=== PATIENT | female | born 1985 | race Caucasian/White ===

== ENCOUNTER 2016-11-12 03:45 | Inpatient (IN) | payer OTHER ==
[2016-11-12 04:48] VITALS: BMI 30.2
[2016-11-12] MEDS ORDERED: Penicillin G Potassium 5 MU in Sodium Chloride 0.9% 50 ML IVPB ONE (04:50)
--- NOTE | 2016-11-12 04:58 | OBADHP ---
Datetime: 11/12/2016 04:52 Admit Comment, IP Provider: Patient is a @ 40.4 wks with uterine contractions. Patient is GB S positive, otherwise previous no issues and previous history of multiple terminations. No medic al problems, no surgeries, no allergies. Patient denies vaginal bleeding, leaking, +FM VE+6/90/-1 UTT=[id number] mod martha, +accels, no decels TOCO = contraction q 1-2 mins A/P 1. Patient presents in labor, 6cm. Will admit patient, start IVF, draw blood 2. PCN for GBS prophylaxis. 3. Patient would like epidural for pain 4. CEFM and TOCO Pelvic Type - PN: Adequate Extremities - PN: Normal Abdomen - PN: Normal Back - PN: Normal Breast - PN: Normal Lungs - PN: Normal Heart - PN: Normal Thyroid - PN: Normal Neurologic - PN: Normal HEENT - PN: Normal General - PN: Normal Presentation-Admit: Breech FHR - Baseline A Provider: 125 Membranes, Provider: Intact Contraction Comments Provider: q 1-2 Vital Signs Provider: Reviewed; Within Normal Limits IP Chief Complaint: Uterine contractions NICHD Variability Prov Fetus A: Moderate 6-25bpm NICHD Accel Fetus A IP Provider: 15X15 NICHD Decel Fetus A IP Provider: None Dilatation, Provider: 6 Effacement, Provider: 90 Station, Provider: -1 Genitourinary Exam: Normal DTRs - PN: Normal EGA AdmitDate IP: 40.4 IP Adm Impression: Term, intrauterine IP Admit Plan: Admit to unit; Initiate labor protocol
[2016-11-12] MEDS ORDERED: Penicillin G 5 Million Unit Vial IVPB ONE (05:03)
[2016-11-12] MEDS: Lactated Ringer's 1,000 ML IV SCH ×4 (05:11→10:00)
[2016-11-12 05:21] LABS: BASO % 0.3 % (0.0-2.0); EOS # 0.2 K/uL (0.0-0.7); EOS % 1.4 % (0.0-4.0); HEMATOCRIT 36.7 % (34.0-47.0); LYMPH # 1.7 K/uL (1.0-4.3); LYMPH % 13.9 % (20.0-40.0); MEAN CORPUSCULAR HEMOGLOBIN 29.9 pg (27.0-31.0); MEAN CORPUSCULAR HGB CONC 33.2 g/dL (33.0-37.0); MEAN PLATELET VOLUME 8.9 fl (7.2-11.7); MONO # 0.8 K/uL (0.0-0.8); MONO % 6.7 % (0.0-10.0); NEUT # 9.7 K/uL (1.8-7.0); NEUT % 77.7 % (50.0-75.0); RED CELL DISTRIBUTION WIDTH 13.2 % (11.5-14.5); WHITE BLOOD COUNT 12.5 K/uL (4.8-10.8)
[2016-11-12] MEDS ORDERED: Oxytocin 30 units/LR 500ML 30 U/500 ML BAG IV ONE ×2 (05:21→10:07)
[2016-11-12] MEDS ORDERED: Bupivacaine HCl 0.25% PF (10 ml) Inj ONE (05:46)
[2016-11-12] MEDS ORDERED: Fentanyl/Bupivacaine HCl 250 ML EPI ONE (05:46)
[2016-11-12] MEDS ORDERED: Lidocaine 1% Inj (20ml) ONE (07:33)
--- NOTE | 2016-11-12 09:56 | OBPN ---
Datetime: 11/12/2016 09:52 IP Progress Impression: Normal progression of labor IP Procedures: Artificial ROM IP Progress Plan: Continue present management Membranes, Provider: Ruptured Amniotic Fluid Color, Provider: Meconium, Light FHR - Baseline A Provider: 130s IP Progress Note Comment: 31 yo at 40+4 wks in labor Anticipate VD NICHD Accel Fetus A IP Provider: 15X15 NICHD Variability Prov Fetus A: Moderate 6-25bpm Dilatation, Provider: 10 Effacement, Provider: 100 Station, Provider: -1 Datetime: 11/12/2016 04:52 Contraction Comments Provider: q 1-2 Presentation-Admit: Breech Vital Signs Provider: Reviewed; Within Normal Limits NICHD Decel Fetus A IP Provider: None
[2016-11-12] MEDS ORDERED: Benzocaine/Menthol SPRAY TOP PRN (13:37)
[2016-11-12] MEDS ORDERED: Oxycodone/Acetaminophen 5/325 mg Tab PO PRN (13:37)
--- NOTE | 2016-11-12 13:50 | OBDS ---
MATERNAL INFORMATION Provider Comments: Pt progressed ton complete and pushed to deliver a viable female through t hin meconium-stained fluid at 1:22 pm. Apgars 9 and 9. Wt 3260 gms, 7#3. Infant placed on mother's abdomen. Cord clamped and cut. Cord blood collected. Placenta delivered spontaneously intact w/ a 3vc at 1:26 pm. Right periurethral tear was repaired w/ 3-0 vicryl rapide for hemostasis. 1st degr ee tear was closed w/ 3-0 vicryl rapide. Rectum intact. Pt and baby tolerated the procedure well. EB L: 100mL LABOR SUMMARY EDC: 11/08/2016 00:00 No. Babies in Womb: 1 Attempted: No Labor Anesthesia: Epidural LABOR INFORMATION Oxytocin: N/A Group B Beta Strep: Positive Antibiotics Time of Last Dose: 0900 MEMBRANES Membranes Rupture Method: Spontaneous Rupture of Membranes: 11/12/2016 09:50 Amniotic Fluid Color: Light Meconium Amniotic Fluid Amount: Moderate Amniotic Fluid Odor: Normal VAGINAL DELIVERY Laceration Repair Note: Right periurethral tear was repaired w/ 3-0 vicryl rapide for hemostasis. 1 st degree tear was closed w/ 3-0 vicryl rapide. Rectum intact.
[2016-11-13 06:56] LABS: HEMATOCRIT 34.9 % (34.0-47.0); MEAN CELL VOLUME 89.2 fl (81.0-99.0); MEAN CORPUSCULAR HEMOGLOBIN 30.4 pg (27.0-31.0); RED CELL DISTRIBUTION WIDTH 13.3 % (11.5-14.5); WHITE BLOOD COUNT 14.5 K/uL (4.8-10.8)
[2016-11-13] MEDS ORDERED: Hydrocortisone-Pramoxine 1%-1% Foam(10 gm) TOP PRN (08:50)
--- NOTE | 2016-11-13 10:08 | OBPPN ---
Datetime: 11/13/2016 08:58 PP Pain Prov: Within normal limits PP Nausea Prov: Denies PP Flatus Prov: Yes PP BM Prov: No PP Breasts Prov: Not Done PP Heart Prov: Normal PP Lungs Prov: Normal PP Abdomen/Uterus Prov: Normal PP Lochia Prov: Normal PP Vulva/Perineum Prov: Normal PP CVA Tenderness Prov: Not Done PP Extremities Prov: Normal PP C/S Incision Prov: Not Applicable PP Progress Prov: Normal PP Impression Prov: Normal progression PP Plan Prov: Continue present management PP Progress Note Prov: S: 31 yo s/p NVD on 11/12/16 at 13:22. Pt. is seen and examined at bedside this AM. No overnight events. Pt reports occasional abdominal pain, but well controlled with pain me ds. Pt is ambulating without any difficulties. Breast feeding baby. Tolerating PO diet. Lochia is sim ilar to light menses in volume. Voiding freely, No Bowel movement, but passing gas per rectum. Denies fever/chills, diarrhea, nausea/vomiting, chest pain, dyspnea, and dizziness. O: VS: stable GEN: NAD Cardio: s1s2, no M/G/R Resp: clear breath sounds b/l Abdomen: BS+, NT, Uterus is firm and at the level of the umbilicus. EXT: No edema, calves nontender NEURO/PSYCHI: AAOx3, no grossly focal deficit, preserved affect and mood. Assessment/Plan: 31 yo s/p NVD on 11/12/16 at 13:22. Pt remains afebrile, tolerating pain with medication, tolerating PO intake, doing well on PPD1. OOB with caution SCDs for DVT prophylaxis, pt ambulating Ibuprofen 600mg for pain. Colace 100mg PO BID for constipation Encourage and ambulating F/u CBC post-delivery:11.9/34/9. Mary Nino PGY [address] Hutchinson: I have evaluated the patient independently and I agree with the above. The patient is PPD #1, stable, continue orders IP PP Procedures: None Vital Signs Provider PP: Reviewed; Within Normal Limits
[2016-11-14 17:53] VITALS: BP 123/73; PULSE 74; RESP 20; TEMP 98; O2SAT 100
--- NOTE | 2016-11-15 00:43 | OBDCSUM ---
Datetime: 11/14/2016 05:24 Discharge Comment, Provider: DOA: 11/12/2016 EGA: 40.4 Diagnosis: term PRisk factors: none summary of : L_D summary: DOL:11/12/2016 at 13:22 NB: female : 11/18 Weight: 3260g PP summary: No serious complications during PP. Lochia= menses, mild pain, controlled with medications Rubella immune, Tdap to be offered at discharge blood type: O+ CBC pp: 11.9/34.9 Discharge Date 11/14/2016 , time 10:00AM Discharge Instructions: -encourage -percocet/Ibuprofen for pain PRN -Colace for constipation -Ambulate as tolerated -f/u NB visit and PP visit --- Adi Pearl, PGY-1 Late entry for Nov 14 9:00am OB Hospitalist note: This pt was seen and examined by me. Agree with above note. BARBARA
--- NOTE | 2016-11-15 00:43 | OBPPN ---
Datetime: 11/14/2016 05:20 PP Pain Prov: Within normal limits PP Nausea Prov: Denies PP Flatus Prov: Yes PP BM Prov: Yes PP Breasts Prov: Not Done PP Heart Prov: Normal PP Lungs Prov: Normal PP Abdomen/Uterus Prov: Normal PP Lochia Prov: Normal PP Vulva/Perineum Prov: Not Done PP CVA Tenderness Prov: Normal PP Extremities Prov: Normal PP C/S Incision Prov: Not Applicable PP Progress Prov: Normal PP Comments Phys Exam Prov: S: 31 yo s/p NVD on 11/12/16 at 13:22. [facility] No overnight events. Pt reports minor pain, but well controlled with pain meds. Pt is ambulating without any difficulties. Breast feeding baby. Tolerating PO diet. Lochia is similar to li ght menses in volume. Voiding freely. Bowel movement, with passing gas per rectum. Denies fever/chil ls, diarrhea, nausea/vomiting, chest pain, dyspnea, and dizziness. O: VS: stable GEN: NAD Cardio: s1s2, no M/G/R Resp: clear breath sounds b/l Abdomen: BS+, NT, Uterus is firm and at the level of the umbilicus. EXT: No edema, calves nontender NEURO/PSYCHI: AAOx3, no grossly focal deficit, preserved affect and mood. Assessment/Plan: 31 yo s/p NVD on 11/12/16 at 13:22. Pt remains afebrile, tolerating pain with medication, tolerating PO intake, doing well on PPD1. OOB with caution Pt ambulating Ibuprofen 600mg for pain. Colace 100mg PO BID for constipation Encourage and ambulating F/u CBC post-delivery:11.9/34/9. Anticipated d/c to home today 11/14/16 Adi Pearl M.D. PGY-1 PP Impression Prov: Normal progression PP Plan Prov: Discharge PP Progress Note Prov: Late entry for Nov 14 9:00am OB Hospitalist note: This pt was seen and examined by me. Agree with above note. MAHNDO Vital Signs Provider PP: Reviewed; Within Normal Limits
== END 2016-11-14 12:45 | disposition home or self-care (01) | DRG 373 ==
LOC: H.EROB2 03:45 → H.L&D 04:48 → H.OB/GYN 15:40
PROVIDERS: ADMIT Obstetrics & Gynecology; ATTEND Obstetrics & Gynecology
PROC: 10E0XZZ Delivery of Products of Conception, External Approach (ICD-10-PCS; principal; 2016-11-12)
PROC: 0HQ9XZZ Repair Perineum Skin, External Approach (ICD-10-PCS; 2016-11-12)
PROC: 4A1HXCZ Monitoring of Products of Conception, Cardiac Rate, External Approach (ICD-10-PCS; 2016-11-12)
DX: O99.824 Streptococcus B carrier state complicating childbirth (principal); O77.0 Labor and delivery complicated by meconium in amniotic fluid; Z37.0 Single live birth; O70.0 First degree perineal laceration during delivery; Z3A.40 40 weeks gestation of pregnancy

== ENCOUNTER 2017-11-26 12:54 | Emergency (ER) | payer OTHER ==
[2017-11-26 13:06] VITALS: BP 123/76; PULSE 72; RESP 18; TEMP 97; O2SAT 99; BMI 25.7
--- NOTE | 2017-11-26 13:56 | ED PDOC ---
Lower Extremity Pain/Injury Time Seen by Provider: 11/26/17 13:18 Chief Complaint (Nursing): Lower Extremity Problem/Injury Chief Complaint (Provider): Left 3rd toe injury History Per: Patient History/Exam Limitations: no limitations Onset/Duration Of Symptoms: Days (1) Current Symptoms Are (Timing): Still Present Additional History Per: Patient Additional Complaint(s): 32yo female, otherwise well, comes to ER for evaluation of left 3rd toe injury. Patient states she was walking fast and her foot struck the bedframe and she injured her left 3rd toe. Patient reports pain and bruising to the site and states it radiates to her foot. She took motrin this morning with minimal relief. Patient states she attempted to go to work but was unable to stand due to pain, prompting her ER visit. PMD: Marianne Flores - Ankle/Foot Description Of Injury: Struck Against Object Past Medical History Reviewed: Historical Data, Nursing Documentation, Vital Signs Vital Signs: Last Vital Signs Temp 97 F L 11/26/17 13:05 Pulse 72 11/26/17 13:05 Resp 18 11/26/17 13:05 BP 123/76 11/26/17 13:05 Pulse Ox 99 11/26/17 13:05 - Medical History PMH: No Chronic Diseases - Surgical History Surgical History: No Surg Hx - Family History Family History: States: No Known Family Hx - Home Medications Home Medications: Ambulatory Orders Medication Instructions Recorded Vit Calc,Iron,Folic 1 tab PO DAILY 11/12/16 [ Vitamins] Ibuprofen [Motrin Tab] 600 mg PO Q4 PRN #30 tab 11/14/16 Sennosides A and B [Senokot Tab] 17.2 mg PO HS PRN #15 tab 11/14/16 Naproxen [Naprosyn] 500 mg PO BID PRN #20 tablet 11/26/17 traMADol [Ultram] 50 mg PO Q6H PRN #15 tab 11/26/17 - Allergies Allergies/Adverse Reactions: Allergies Allergy/AdvReac Type Severity Reaction Status Date / Time No Known Allergies Allergy Verified 04/03/14 18:10 Review of Systems ROS Statement: Except As Marked, All Systems Reviewed And Found Negative Musculoskeletal: Positive for: Foot Pain (left 3rd toe) Neurological: Negative for: Weakness, Numbness Physical Exam - Reviewed Nursing Documentation Reviewed: Yes Vital Signs Reviewed: Yes - Physical Exam Appears: Positive for: Non-toxic, No Acute Distress Head Exam: Positive for: ATRAUMATIC, NORMAL INSPECTION, NORMOCEPHALIC Skin: Positive for: Normal Color Eye Exam: Positive for: Normal appearance ENT: Positive for: Normal ENT Inspection Neck: Positive for: Supple Cardiovascular/Chest: Negative for: Bradycardia, Tachycardia Respiratory: Negative for: Accessory Muscle Use, Respiratory Distress Pulses-Dorsalis Pedis (L): 2+ Pulses-Dorsalis Pedis (R): 2+ Extremity: Positive for: Normal ROM, Tenderness (tenderness and ecchymosis noted to left 3rd toe and metatarsal.). Negative for: Pedal Edema, Deformity Neurologic/Psych: Positive for: Alert, Oriented. Negative for: Motor/Sensory Deficits - ECG O2 Sat by Pulse Oximetry: 99 (RA) Pulse Ox Interpretation: Normal Medical Decision Making Medical Decision Making: Impression: Foot injury, rule out fracture Plan: * XR left foot * Motrin 600mg PO 1400 XR reviewed and significant for a fracture of proximal left 3rd toe. Podiatry resident nutrition teacher paged. Splint, surgical shoe and crutches given. F/u with Dr. Saunders. Scribe Attestation: Documented by Liat Boss acting as a scribe for JOON Riddle. Provider Attestation: All medical record entries made by the Scribe were at my direction and personally dictated by me. I have reviewed the chart and agree that the record accurately reflects my personal performance of the history, physical exam, medical decision making, and the department course for this patient. I have also personally directed, reviewed, and agree with the discharge instructions and disposition. Disposition - Clinical Impression Clinical Impression: Toe fracture, left - Patient ED Disposition Is Patient to be Admitted: No Counseled Patient/Family Regarding: Diagnosis, Need For Followup, Rx Given - Disposition Referrals: German Azul DPM [Doctor Podiatric Medicine] - Disposition: Routine/Home Disposition Time: 14:58 Condition: STABLE Prescriptions: Naproxen [Naprosyn] 500 mg PO BID PRN #20 tablet PRN Reason: Pain traMADol [Ultram] 50 mg PO Q6H PRN #15 tab PRN Reason: Pain Instructions: Toe Fracture (DC) Forms: [employer] (Nepali), [facility] ED School/Work Excuse
--- NOTE | 2017-11-26 14:24 | RAD ---
Date of service: 11/26/2017 PROCEDURE: Left Foot Radiographs. HISTORY: 3rd toe and 3rd metatarsal pain COMPARISON: None. FINDINGS: BONES: Oblique fracture through the proximal phalanx left 3rd digit. JOINTS: Normal. SOFT TISSUES: Normal. OTHER FINDINGS: None. IMPRESSION: Oblique non articular fracture proximal phalanx left 3rd digit.
--- NOTE | 2017-11-26 15:34 | CP.PCM.CON ---
History of Present Illness - History of Present Illness History of Present Illness: Podiatry consult note for Dr. Azul 32 y/o female seen and evaluated at bedside due to complaints of pain to her right 3rd toe. Patient states she hit her foot against the bedpost yesterday. Patient applied ice to the area yesterday. Patient states she also went to work this morning, however, the pain and bruising have worsened since. Patient denies taking any medications for the pain. Patient denies any other pedal complaints and denies F/N/V/SOB/chills. PMHx: denies PSHx: denies Social Hx: denies tobacco use, drinks alcohol socially, denies drug use Medications: none ALL: denies Review of Systems - Review of Systems All systems: reviewed and no additional remarkable complaints except Review of Systems: as per HPI Past Patient History - Infectious Disease Hx of Infectious Diseases: None - Past Social History Smoking Status: Never Smoked - PSYCHIATRIC Hx Substance Use: No - SURGICAL HISTORY Other/Comment: cervical biopsy Meds Home Medications: Home Medication List Medication Instructions Recorded Confirmed Type Naproxen [Naprosyn] 500 mg PO BID PRN #20 tablet 11/26/17 Rx traMADol [Ultram] 50 mg PO Q6H PRN #15 tab 11/26/17 Rx Allergies/Adverse Reactions: Allergies Allergy/AdvReac Type Severity Reaction Status Date / Time No Known Allergies Allergy Verified 04/03/14 18:10 Physical Exam - Constitutional Appears: Well, Non-toxic, No Acute Distress - Head Exam Head Exam: ATRAUMATIC, NORMOCEPHALIC - Extremities Exam Additional comments: Lower Extremity focused exam VASC: DP and PT 2/4 bilaterally, CFT less than 3 seconds to all digits, TG within normal limits, minimal edema noted to the 3rd digit right foot NEURO: Epicritic and protective sensation intact DERM: ecchymosis and edema noted to the 3rd digit starting at the level of the 3rd MTPJ, minimal ecchymosis noted to the dorsum of the foot, no open lesions, no clinical signs of infection ORTHO: pain on palpation at the 3rd digit, pain with 3rd MTPJ range of motion, MSK 5/5 otherwise - Neurological Exam Neurological exam: Alert, Oriented x3 - Psychiatric Exam Psychiatric exam: Normal Affect, Normal Mood Results - Vital Signs Recent Vital Signs: Last Vital Signs Temp 97 F L 11/26/17 13:05 Pulse 72 11/26/17 13:05 Resp 18 11/26/17 13:05 BP 123/76 11/26/17 13:05 Pulse Ox 99 11/26/17 14:59 Assessment & Plan - Assessment and Plan (Free Text) Assessment: 32 y/o female seen and evaluated for for fracture to the 3rd proximal phalanx right foot Plan: Patient seen and evaluated at bedside Plan discussed with attending Dr. Azul Foot X-ray: angulated fracture noted of the 3rd right proximal phalanx Patient 3rd digit splinted and patient provided a surgical shoe Patient Rx Naprosyn for pain Patient provided with crutches and taught how to use Patient will follow up in Dr. Azul in office Patient explained to return to clinic if pain worsens Thank you for the podiatry consult - Date & Time Date: 11/26/17 Time: 16:28
== END 2017-11-26 15:07 | disposition home or self-care (01) ==
LOC: H.ER 12:54
DX: S92.512A Displaced fracture of proximal phalanx of left lesser toe(s), initial encounter for closed fracture (principal); W22.03XA Walked into furniture, initial encounter

== ENCOUNTER 2018-05-21 09:19 | Emergency (ER) | payer OTHER ==
[2018-05-21 09:37] VITALS: BMI 24.7
[2018-05-21 09:41] VITALS: RESP 20; O2SAT 98
[2018-05-21] MEDS ORDERED: Sodium Chloride 0.9% 1,000 ML IV STA (09:58)
[2018-05-21] MEDS ORDERED: Iohexol 240 (50 ml) PO ONE (09:59)
--- NOTE | 2018-05-21 10:14 | ED PDOC ---
HPI: Abdomen Time Seen by Provider: 05/21/18 09:31 Chief Complaint (Nursing): GI Problem Chief Complaint (Provider): Abdominal pain, vomiting History Per: Patient History/Exam Limitations: no limitations Onset/Duration Of Symptoms: Days (1) Location Of Pain/Discomfort: Epigastric Additional History Per: Patient Additional Complaint(s): 33yo female, otherwise well, comes to ER reporting nausea, vomiting and abdominal pain x 1 day. She reports while at work, she suddenly felt nauseous and then had multiple episodes of vomiting. She also reports associated chills, tactile fever, headache and diffuse bodyaches. She denies any cough, congestion, rhinorrhea, chest pain, diarrhea; patient denies any known sick contacts as well and states she has not had any changes to her diet. PMD: None Past Medical History Reviewed: Historical Data, Nursing Documentation, Vital Signs Vital Signs: Last Vital Signs Temp 100.1 F H 05/21/18 09:37 Pulse 102 H 05/21/18 09:37 Resp 20 05/21/18 09:37 BP 136/73 05/21/18 09:37 Pulse Ox 98 05/21/18 09:37 - Medical History PMH: Denies: Depression, Diabetes, HTN - Surgical History Surgical History: No Surg Hx - Family History Family History: States: Unknown Family Hx - Home Medications Home Medications: Ambulatory Orders Medication Instructions Recorded Vit Calc,Iron,Folic 1 tab PO DAILY 11/12/16 [ Vitamins] Ibuprofen [Motrin Tab] 600 mg PO Q4 PRN #30 tab 11/14/16 Sennosides A and B [Senokot Tab] 17.2 mg PO HS PRN #15 tab 11/14/16 Naproxen [Naprosyn] 500 mg PO BID PRN #20 tablet 11/26/17 traMADol [Ultram] 50 mg PO Q6H PRN #15 tab 11/26/17 - Allergies Allergies/Adverse Reactions: Allergies Allergy/AdvReac Type Severity Reaction Status Date / Time No Known Allergies Allergy Verified 05/21/18 09:37 Review of Systems ROS Statement: Except As Marked, All Systems Reviewed And Found Negative Constitutional: Positive for: Fever, Chills, Malaise Cardiovascular: Negative for: Chest Pain Respiratory: Negative for: Cough, Shortness of Breath Gastrointestinal: Positive for: Vomiting, Abdominal Pain Genitourinary Female: Negative for: Dysuria, Hematuria Musculoskeletal: Negative for: Neck Pain, Back Pain Neurological: Negative for: Weakness, Numbness Physical Exam - Reviewed Nursing Documentation Reviewed: Yes Vital Signs Reviewed: Yes (febrile, tachycardic) - Physical Exam Appears: Positive for: Non-toxic, No Acute Distress Head Exam: Positive for: ATRAUMATIC, NORMAL INSPECTION, NORMOCEPHALIC Skin: Positive for: Normal Color, Warm, Dry Eye Exam: Positive for: EOMI, PERRL Neck: Positive for: Normal, Painless ROM Cardiovascular/Chest: Positive for: Regular Rate, Rhythm Respiratory: Positive for: Normal Breath Sounds. Negative for: Wheezing, Respiratory Distress Gastrointestinal/Abdominal: Positive for: Soft, Tenderness (tenderness noted just below epigastric abdomen). Negative for: Guarding, Rebound Back: Positive for: Normal Inspection. Negative for: L CVA Tenderness, R CVA Tenderness Extremity: Positive for: Normal ROM. Negative for: Pedal Edema, Deformity Neurological/Psych: Positive for: Awake, Oriented (x 3) - Laboratory Results Result Diagrams: 05/21/18 10:07 05/21/18 10:07 - ECG O2 Sat by Pulse Oximetry: 98 (RA) Pulse Ox Interpretation: Normal Medical Decision Making Medical Decision Making: Impression: Abdominal pain Plan: -- Labs -- IV Fluids -- Toradol 15mg IV -- Zofran 4mg IV -- CT Abdomen/Pelvis w/ PO & IV Contrast [address] Gutierrez pending CT results, reassessment. Scribe Attestation: Documented by Liat Boss acting as a scribe for Lino Guzman MD. Provider Attestation: All medical record entries made by the Scribe were at my direction and personbal garcia dictated by me. I have reviewed the chart and agree that the record accurately reflects my personal performance of the history, physical exam, medical decision making, and the department course for this patient. I have also personally directed, reviewed, and agree with the discharge instructions and disposition. Disposition - Clinical Impression Clinical Impression: Gastroenteritis - Patient ED Disposition Is Patient to be Admitted: Transfer of Care - Disposition Disposition: Transfer of Care Disposition Time: 12:00 Condition: IMPROVED Additional Instructions: Take Tylenol or Motrin for fever. Increase rest and hydration while symptoms last. Follow up with primary medical doctor in one week. Return to the emergency department if symptoms worsen or if new symptoms develop. Discuss incidental findings of renal cysts. Return to the emergency department if symptoms worsen or if new symptoms develop. Instructions: Gastritis (DC) Forms: [employer] (Kazakh), [facility] ED School/Work Excuse Print Language: [place]
[2018-05-21] MEDS ORDERED: Iohexol 240 (50 ml) ONE (10:16)
[2018-05-21 10:21] LABS: VENOUS BLOOD GAS BASE EXCESS 3.8 mmol/L (0.0-2.0); VENOUS BLOOD GAS PCO2 46 mmHg (40-60); VENOUS BLOOD GAS PO2 22 mm/Hg (30-55); VENOUS BLOOD PH 7.41 (7.32-7.43)
[2018-05-21 10:24] LABS: BASO % 0.1 % (0.0-2.0); LYMPH # 0.7 K/uL (1.0-4.3); LYMPH % 10.1 % (20.0-40.0); MEAN CORPUSCULAR HEMOGLOBIN 28.7 pg (27.0-31.0); MONO # 0.4 K/uL (0.0-0.8); MONO % 5.5 % (0.0-10.0); NEUT # 5.6 K/uL (1.8-7.0); NEUT % 84.3 % (50.0-75.0); NRBC % 0.1 % (0.0-0.0); RBC 4.53 Mil/uL (3.80-5.20); RED CELL DISTRIBUTION WIDTH 13.3 % (11.5-14.5); WHITE BLOOD COUNT 6.7 K/uL (4.8-10.8)
[2018-05-21 10:31] LABS: ALB/GLOB RATIO 1.4 (1.0-2.1); ALBUMIN 4.1 g/dL (3.5-5.0); ALT/SGPT 19 U/L (9-52); AST/SGOT 18 U/L (14-36); BLOOD UREA NITROGEN 15 mg/dl (7-17); CALCIUM 9.1 mg/dL (8.4-10.2); GFR NON-AFRICAN AMERICAN > 60; LIPASE 29 U/L (23-300)
[2018-05-21] MEDS ORDERED: Sodium Chloride 0.9% 50 ML IV ONE (12:08)
[2018-05-21] MEDS ORDERED: Iohexol 300 100 ML IJ ONE (12:08)
--- NOTE | 2018-05-21 12:53 | ED PDOC ---
- Laboratory Results Result Diagrams: 05/21/18 10:07 05/21/18 10:07 Lab Results: pO2 22 mm/Hg (30-55) L 05/21/18 10:01 VBG pH 7.41 (7.32-7.43) 05/21/18 10:01 VBG pCO2 46 mmHg (40-60) 05/21/18 10:01 VBG HCO3 26.3 mmol/L 05/21/18 10:01 VBG Total CO2 30.6 mmol/L (22-28) H 05/21/18 10:01 VBG O2 Sat (Calc) 42.6 % (40-65) 05/21/18 10:01 VBG Base Excess 3.8 mmol/L (0.0-2.0) H 05/21/18 10:01 VBG Potassium 3.4 mmol/L (3.6-5.2) L 05/21/18 10:01 Sodium 136.0 mmol/L (132-148) 05/21/18 10:01 Chloride 102.0 mmol/L (98-107) 05/21/18 10:01 Glucose 112 mg/dL (65-105) H 05/21/18 10:01 Lactate 2.2 mmol/L (0.7-2.1) H 05/21/18 10:01 FiO2 21.0 % 05/21/18 10:01 Total Bilirubin 0.5 mg/dl (0.2-1.3) 05/21/18 10:07 AST 18 U/L (14-36) 05/21/18 10:07 ALT 19 U/L (9-52) 05/21/18 10:07 Alkaline Phosphatase 47 U/L (38-126) 05/21/18 10:07 Total Protein 7.2 G/DL (6.3-8.2) 05/21/18 10:07 Albumin 4.1 g/dL (3.5-5.0) 05/21/18 10:07 Globulin 3.1 gm/dL (2.2-3.9) 05/21/18 10:07 Albumin/Globulin Ratio 1.4 (1.0-2.1) 05/21/18 10:07 Lipase 29 U/L (23-300) 05/21/18 10:07 - ECG O2 Sat by Pulse Oximetry: 98 (RA) Pulse Ox Interpretation: Normal Medical Decision Making Medical Decision Makin Patient with abdominal pain, signed out pending CT, ER dispo. 1400 CT Abdomen/pelvis FINDINGS: LOWER THORAX: Small hiatal hernia identified. LIVER: Unremarkable. No gross lesion or ductal dilatation. GALLBLADDER AND BILE DUCTS: Unremarkable. PANCREAS: Unremarkable. No gross lesion or ductal dilatation. SPLEEN: Unremarkable. ADRENALS: Unremarkable. No mass. KIDNEYS AND URETERS: No definite obstructive uropathy identified bilaterally. No radiodense urolithiasis or perinephric fluid collection. Mildly prominent right extrarenal pelvis. There is a small lucency at the upper pole right kidney measuring 1.1 x 1.2 x 1.5 cm (transverse by anteroposterior by superoinferior dimensions) and 23 H ounsfield units. This may represent a hyperdense cyst though low-density mass is not excluded follow-up CT or MRI abdomen with and without contrast is advised for added characterization. No left renal mass appreciable. VASCULATURE: Unremarkable. No aortic aneurysm. No aortic atherosclerotic calcification or mural plaque present. BOWEL: Unremarkable. No obstruction. No gross mural thickening. APPENDIX: Normal appendix. PERITONEUM: Unremarkable. No free fluid. No free air. LYMPH NODES: Unremarkable. No enlarged lymph nodes. BLADDER: Unremarkable. REPRODUCTIVE: 1.5 cm left adnexal cyst with right adnexal compartment unremarkable. BONES: No acute fracture. OTHER FINDINGS: None. IMPRESSION: 1. No bowel obstruction, mesenteric edema, ascites or free intra peritoneal gas collection. No significant lymphadenopathy. 2. 1.5 cm upper pole right renal lucency potentially reflecting small hyperdense cyst though soft tissue nodule not excluded. Follow-up elective MRI or CT with and without contrast of the abdomen is recommended for added characterization. 3. Small left adnexal cyst 1.5 cm greatest dimension. 1420 On reassessment, patient reports improvement in symptom. Labs reviewed, within normal limits. Informed patient of renal cyst and informed to follow up for repeat scan in 6months-1yr. Stable for discharge home Scribe Attestation: Documented by Liat Boss acting as a scribe for Nikky Gutierrez MD. Provider Attestation: All medical record entries made by the Scribe were at my direction and per sonally dictated by me. I have reviewed the chart and agree that the record accurately reflects my personal performance of the history, physical exam, medical decision making, and the department course for this patient. I have also personally directed, reviewed, and agree with the discharge instructions and disposition. Disposition - Clinical Impression Clinical Impression: Gastroenteritis - POA Present On Arrival: None - Disposition Disposition: Routine/Home Disposition Time: 14:20 Condition: IMPROVED Additional Instructions: Take Tylenol or Motrin for fever. Increase rest and hydration while symptoms last. Follow up with primary medical doctor in one week. Return to the emergency department if symptoms worsen or if new symptoms develop. Discuss inci dental findings of renal cysts. Return to the emergency department if symptoms worsen or if new symptoms develop. Instructions: Gastritis (DC) Forms: [employer] (Nauruan), [facility] ED School/Work Excuse Print Language: WELSH
--- NOTE | 2018-05-21 13:49 | CT ---
Date of service: 05/21/2018 PROCEDURE: CT Abdomen and Pelvis with contrast HISTORY: abd pain COMPARISON: None. TECHNIQUE: Following oral and intravenous contrast administration, a CT examination of the abdomen and pelvis was performed from the domes of the diaphragms to the symphysis pubis with reformatted datasets provided not only axial but also sagittal and coronal series. Contrast dose: Omnipaque 300, 95 cc Radiation dose: Total exam DLP = 487.29 mGy-cm. This CT exam was performed using one or more of the following dose reduction techniques: Automated exposure control, adjustment of the mA and/or kV according to patient size, and/or use of iterative reconstruction technique. FINDINGS: LOWER THORAX: Small hiatal hernia identified. LIVER: Unremarkable. No gross lesion or ductal dilatation. GALLBLADDER AND BILE DUCTS: Unremarkable. PANCREAS: Unremarkable. No gross lesion or ductal dilatation. SPLEEN: Unremarkable. ADRENALS: Unremarkable. No mass. KIDNEYS AND URETERS: No definite obstructive uropathy identified bilaterally. No radiodense urolithiasis or perinephric fluid collection. Mildly prominent right extrarenal pelvis. There is a small lucency at the upper pole right kidney measuring 1.1 x 1.2 x 1.5 cm (transverse by anteroposterior by superoinferior dimensions) and 23 Hounsfield units. This may represent a hyperdense cyst though low-density mass is not excluded follow-up CT or MRI abdomen with and without contrast is advised for added characterization. No left renal mass appreciable. VASCULATURE: Unremarkable. No aortic aneurysm. No aortic atherosclerotic calcification or mural plaque present. BOWEL: Unremarkable. No obstruction. No gross mural thickening. APPENDIX: Normal appendix. PERITONEUM: Unremarkable. No free fluid. No free air. LYMPH NODES: Unremarkable. No enlarged lymph nodes. BLADDER: Unremarkable. REPRODUCTIVE: 1.5 cm left adnexal cyst with right adnexal compartment unremarkable. BONES: No acute fracture. OTHER FINDINGS: None. IMPRESSION: 1. No bowel obstruction, mesenteric edema, ascites or free intra peritoneal gas collection. No significant lymphadenopathy. 2. 1.5 cm upper pole right renal lucency potentially reflecting small hyperdense cyst though soft tissue nodule not excluded. Follow-up elective MRI or CT with and without contrast of the abdomen is recommended for added characterization. 3. Small left adnexal cyst 1.5 cm greatest dimension.
[2018-05-21 14:51] VITALS: BP 120/70; PULSE 74; TEMP 98.2
== END 2018-05-21 14:51 | disposition home or self-care (01) ==
LOC: H.ER 09:19
DX: K52.9 Noninfective gastroenteritis and colitis, unspecified (principal); N28.1 Cyst of kidney, acquired
CPT/HCPCS: 74177; 80053; 81025; 82803; 83690; 85025; 87040; 96361; 96374; 96375; 99284; J1885; J2405; J7030; Q9966; Q9967